=== PATIENT | female | born 1990 | race American Indian/Alaskan Native ===

== ENCOUNTER 2019-04-05 08:30 | Emergency (ER) | payer OTHER ==
[2019-04-05 08:36] VITALS: BP 105/66
[2019-04-05] MEDS ORDERED: PERCOCET 5/325 PO ONE (09:33)
[2019-04-05] MEDS ORDERED: IBUPROFEN PO ONE (09:33)
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
== END 2019-04-05 11:05 | disposition home or self-care (01) ==
LOC: ED 08:30
DX: S39.012A Strain of muscle, fascia and tendon of lower back, initial encounter (principal); S70.02XA Contusion of left hip, initial encounter; S70.01XA Contusion of right hip, initial encounter; S80.12XA Contusion of left lower leg, initial encounter; Z79.899 Other long term (current) drug therapy; V89.2XXA Person injured in unspecified motor-vehicle accident, traffic, initial encounter; Y93.89 Activity, other specified; Y92.488 Other paved roadways as the place of occurrence of the external cause; Y99.8 Other external cause status
CPT/HCPCS: 72100; 73521; 99283